=== PATIENT | male | born 1970 | race Caucasian/White ===

== ENCOUNTER 2022-12-27 16:07 | Emergency (ER) | payer OTHER ==
[~2022-12-27] VITALS: Ht 182.8 cm; Wt 128.4 kg
[2022-12-27 17:10] LABS: URINE AMPHETAMINES Negative (1000ng/ml); URINE BARBITURATES Negative (200ng/ml); URINE BENZODIAZEPINES Negative (200ng/ml); URINE CANNABINOIDS (THC) Negative (50ng/ml); URINE COCAINE Negative (300ng/ml); URINE METHADONE Negative (300ng/ml); URINE OPIATES Negative (300ng/ml); URINE PHENCYCLIDINE Negative (25ng/ml)
== END 2022-12-27 18:39 | disposition home or self-care (01) ==
LOC: ED 16:07
PROVIDERS: Physician Assistant Medical
DX: S43.401A Unspecified sprain of right shoulder joint, initial encounter (principal); X50.1XXA Overexertion from prolonged static or awkward postures, initial encounter; Y93.89 Activity, other specified; Y92.89 Other specified places as the place of occurrence of the external cause; Y99.0 Civilian activity done for income or pay